=== PATIENT | female | born 1995 | race Two or more races ===

== ENCOUNTER 2017-06-30 00:37 | Emergency (ER) | payer SELFPAY ==
[~2017-06-30] VITALS: Ht 154.9 cm; Wt 51.9 kg
[2017-06-30 00:39] VITALS: BP 129/83
[2017-06-30] MEDS ORDERED: KETOROLAC 30 MG/1 ML IM ONE (01:00)
[2017-06-30] MEDS ORDERED: KETOROLAC 30 MG/1 ML ONE (01:16)
== END 2017-06-30 02:18 | disposition home or self-care (01) ==
LOC: ED 02:00
DX: R07.89 Other chest pain (principal)
CPT/HCPCS: 71046; 93005; 96372; 99284; J1885

== ENCOUNTER 2018-03-02 18:56 | Emergency (ER) | payer SELFPAY ==
[~2018-03-02] VITALS: Ht 157.5 cm; Wt 47.4 kg
--- NOTE | 2018-03-02 19:27 | NUR ---
THIS SANITATION MANAGER MADE AWARE THAT PT HAD A SYNCOPAL EVENT WHILE SEATED AND HAVING HER BLOOD DRAWN. PT PLACED IN ROOM 14 IMMEDIATELY FOLLOWING EVENT.
[2018-03-02] MEDS ORDERED: SODIUM CHLORIDE FLUSH 10ML SYR IVF ONE (19:30)
[2018-03-02] MEDS ORDERED: ONDANSETRON 2MG/ML, 2ML IVPush ONE (19:30)
[2018-03-02 19:37] LABS: BASOPHILS # (AUTO) 0.06 x10^3/uL (0-0.1); BASOPHILS % (AUTO) 1 % (0-1); EOSINOPHILS % (AUTO) 3 % (1-7); LYMPHOCYTES # (AUTO) 2.73 x10^3/uL (1-3.4); LYMPHOCYTES % (AUTO) 29 % (22-44); MD NO; MEAN CORPUSCULAR HEMOGLOBIN 31.7 pg (27.0-34.8); MEAN CORPUSCULAR HGB CONC 34.3 g/dL (32.4-35.8); MEAN CORPUSCULAR VOLUME 92.6 fL (80-100); MEAN PLATELET VOLUME 8.5 fL (7.4-10.4); MONOCYTES # (AUTO) 0.53 x10^3/uL (0.2-0.8); MONOCYTES % (AUTO) 6 % (2-9); NEUTROPHILS # (AUTO) 5.95 x10^3/uL (1.8-6.8); NEUTROPHILS % (AUTO) 62 % (42-75); PLATELET COUNT 309 x10^3/uL (130-400); RED BLOOD COUNT 4.72 x10^6/uL (3.82-5.3); RED CELL DISTRIBUTION WIDTH 13.2 % (9.6-15.2)
[2018-03-02] MEDS ORDERED: ONDANSETRON 2MG/ML, 2ML ONE (19:37)
[2018-03-02 19:48] LABS: ALANINE AMINOTRANSFERASE 22 U/L (12-78); ALBUMIN 3.9 g/dL (3.4-5.0); ANION GAP 7 mmol/L (5-15); CALCIUM 8.7 mg/dL (8.5-10.1); CHLORIDE 109 mmol/L (98-107)
[2018-03-02 19:50] LABS: ALKALINE PHOSPHATASE 68 U/L (45-117); BILIRUBIN,TOTAL 0.3 mg/dL (0.2-1.0); TOTAL PROTEIN 8.2 g/dL (6.4-8.2)
--- NOTE | 2018-03-02 20:05 | NUR ---
PT STATES SHE HAS LOW INTERMITTENT ABD PAIN THAT STARTED "LAST WEEK." DENIES N/V. STATES SHE HAS HAD MORE FREQUENT URINATION WITH BURNING. DENIES ANY ISSUES WITH BOWEL MOVEMENTS. DENIES AGGREVATING OR ALLEVIATING FACTORS. LMP WAS "LAST MONTH SOMETIME". PT PLACED ON CONT SPO2 AND BP MONITOR.
--- NOTE | 2018-03-02 20:53 | NUR ---
PT RESTING ON GURNEY, RR EVEN AND UNLABORED. PT ON CONT SPO2 AND BP MONITOR, VSS. DENIES NEEDS OR PAIN ATT. AWAITING URINE RESULTS AND US
[2018-03-02 20:54] LABS: CULTURE INDICATED? YES; HCG UR SG 1.017 (1.003-1.030); MICROSCOPIC INDICATED
--- NOTE | 2018-03-02 21:44 | NUR ---
PTS CHART UP FOR RECHECK
[2018-03-02 21:45] VITALS: BP 99/73
== END 2018-03-02 22:16 | disposition home or self-care (01) ==
LOC: ED 20:41
DX: N30.00 Acute cystitis without hematuria (principal)
CPT/HCPCS: 36415; 76830; 80053; 81001; 81025; 83690; 85025; 87077; 87086; 96374; 99284; J2405; 87186